=== PATIENT | female | born 1975 | race Caucasian/White ===

== ENCOUNTER → 2017-11-01 | Outpatient (CLI) | payer OTHER ==
--- NOTE | 2017-11-01 15:56 | RAD ---
HYSTEROSONOGRAPHY Clinical indications: Abnormal bleeding. Menorrhagia.. Procedure: The procedure and possible complications including bleeding and infection were explained to the patient. The test is negative. The patient provided both verbal and written consent. Using sterile technique, a vaginal speculum was inserted and the external cervical os was identified and cleansed with Betadine. Subsequently, using sterile technique, a balloon catheter was inserted into the endometrial cavity. The balloon was inflated with sterile saline. Following this, the vaginal sonographic probe with a sterile cover was inserted into the vaginal canal. A total of 30 cc of sterile normal saline was injected and multiple spot and cine hysterosonography images were taken with the balloon inflated and deflated. The balloon was deflated and the catheter and speculum were removed. The patient tolerated the procedure well without complication. Findings: Transabdominal sonography of the pelvis was performed prior to the procedure. No uterine or ovarian abnormality was identified. The endometrial canal fills out normally and no echogenic mass or polyp is evident. No subendometrial fibroid is seen. No myometrial or serosal fibroid is seen. The endometrial lining is not abnormally thickened. After the saline is expelled from the uterine cavity, the total thickness of the endometrial lining is 1.6 mm. Fluid is seen within the cul-de-sac consistent with at least patency of one fallopian tube. Impression: Normal hysterosonogram. Electronically signed by: Maicol Carvalho MD (11/01/2017 3:53 PM) [facility]
== END | disposition home or self-care (01) ==
LOC: US 10:22
DX: N93.9 Abnormal uterine and vaginal bleeding, unspecified (principal)
CPT/HCPCS: 76831